=== PATIENT | female | born 1965 | race Caucasian/White ===

== ENCOUNTER 2019-08-01 22:05 | Emergency (ER) | payer SELFPAY ==
[2019-08-01 22:07] VITALS: BP 122/90; PULSE 99; RESP 18; TEMP 36.9; O2SAT 94; BMI 26.6
--- NOTE | 2019-08-01 22:29 | XRR_ITS ---
PROCEDURE INFORMATION: Exam: XR Chest, 1 View Exam date and time: 08/01/2019 10:43 PM Age: 53 years old Clinical indication: Chest pain; Type not specified TECHNIQUE: Imaging protocol: XR of the chest Views: 1 view. COMPARISON: CR Chest 2 views* [id number] 05/27/2019 11:57 AM FINDINGS: Lungs: Unremarkable. No consolidation. Mild diffuse fibrosis. Linear atelectasis versus scarring in the lung bases. Pleural space: Unremarkable. No pleural effusion. No pneumothorax. Heart/Mediastinum: Borderline cardiomegaly. Bones/joints: Unremarkable. XR/XR chest 1V portable [id number] IMPRESSION: No acute findings. Unchanged fibrosis.
--- NOTE | 2019-08-01 22:29 | ED_ITS ---
Entered by Jesenia Cox, acting as scribe for HPI - Chest Pain General: Chief Complaint: Chest Pain Stated Complaint: chest pain Time Seen by Provider: 08/01/19 22:29 Source: patient Mode of arrival: ambulatory Limitations: no limitations History of Present Illness: HPI narrative: 53 yo f came to the er pov with family for chest pain. Onset was yesterday. Pt states that when she was bending over and layind down makes it worse. Pt states that her left leg stays swollen. Pt states that when she tales a deep breath it causes her pain. MD complaint: chest pain Prior episodes: Yes Onset: during rest and during exertion Pain location: substernal Pain radiation: none Severity: moderate Quality: sharp Relieving factors: nothing Exacerbating factors: exertion and supine Associated symptoms: Deny abdominal pain, dyspnea or fever(s) Risk Factors: Coronary artery disease risk factors: none Related Data: On Oral Contraceptives: No Review of Systems General: Reports: 10 or more systems reviewed and unremarkable except in HPI and below Const: Denies: fever Eyes: Denies: change in vision ENMT: Denies: throat pain Card: Reports: chest pain Resp: Denies: shortness of breath GI: Denies: abdominal pain : Denies: flank pain or urinary incontinence Musc: Denies: neck pain Skin/Breast: Denies: rash Neuro: Denies: headache Psych: Denies: anxiety Endo: Denies: excessive urination Casey/Lymph: Denies: easy bruising All/Imm: Denies: hives PFSH ED PFSH: Statuses (acute, chronic, etc) shown below reflect problem list status as previously entered and may not be historically accurate Social History Smoking and tobacco status: current every day smoker Physical Exam Const: COMMON NORMALS: oriented x3 and alert EXAM LIMITATIONS: no altered mental status HENMT: COMMON NORMALS: not normocephalic HEAD & SCALP: not normocephalic Eye: COMMON NORMALS: PERRL PUPIL: Yes PERRL Neck/C-Spine: COMMON NORMALS: full ROM Chest: COMMONS NORMALS: inspection of chest normal CHEST: Yes localized rib tenderness with anteroposterior compression Resp: COMMON NORMALS: normal respiratory effort and clear to auscultation bilaterally EFFORT & INSPECTION: No tachypneic and No respiratory distress AUSCULTATION: clear to auscultation bilaterally GI: COMMON NORMALS: normal to inspection, nondistended, normoactive bowel sounds : COMMON NORMALS: Yes no CVA tenderness BLADDER/KIDNEY EXAM: Yes no CVA tenderness Back/Pelvis: COMMON NORMALS: no CVA tenderness Extremity: COMMON NORMALS: normal to inspection Neuro: COMMON NORMALS: oriented x3 SENSORIUM/ORIENTATION: Yes alert Psych: ATTITUDE: Yes calm Skin: COMMON NORMALS: no rashes or lesions noted GENERAL SKIN EXAM: no rashes or lesions noted Course ED course: 53-year-old female with reproducible, atypical, pleuritic type chest pain. She was mildly tachycardic. Her troponins did not change. Her EKGs showed wandering isoelectric line with slight J-point elevation in some leads. This did not appear ischemic. Her other laboratory was not significant. Because of the tachycardia, and pleuritic chest pain, CTA was ordered which did not show a pulmonary embolism. There was no pneumonia. There was however debris in the right main bronchus indicative of possible aspiration. She will be treated for aspiration pneumonitis, as well as the potential for costochondritis. Vital Signs: Vital signs: Vital Signs Temperature 98.5 F 08/01/19 22:07 Pulse Rate 89 08/02/19 03:13 Respiratory Rate 16 08/02/19 03:13 Blood Pressure 130/77 08/02/19 03:13 Pulse Oximetry 98 08/02/19 03:13 MDM - Chest Pain Lab Data: Labs: Lab Results 08/01/19 08/01/19 08/01/19 Range/Units 22:47 22:47 22:47 WBC 15.5 H (4.0-10.0) 10^3/ uL RBC 4.73 (4.1-5.3) 10^6/u L Hgb 15.1 (11.5-15.3) g/dL Hct 45.3 (37.0-47.0) % MCV 95.8 (81-99) fL MCH 31.9 (28.0-34.0) pg MCHC 33.3 (30.0-36.0) g/dL RDW 14.2 (12.1-15.1) % Plt Count 360 (130-400) 10^3/c mm MPV 9.9 (7.4-10.4) fL Neut % (Auto) 82.9 % Lymph % (Auto) 10.7 % [place] % (Auto) 5.1 % Eos % (Auto) 0.5 % Baso % (Auto) 0.5 % Neut # (Auto) 12.8 H (1.8-7.7) 10^3/u L Lymph # (Auto) 1.7 (0.8-4.8) 10^3/u L [place] # (Auto) 0.8 (0.2-0.9) 10^3/u L Eos # (Auto) 0.1 (0.0-0.8) 10^3/u L Baso # (Auto) 0.1 (0.0-0.1) 10^3/u L Nucleated RBC % (a uto) 0 % Nucleated RBCs # 0.0 /100WBC Sodium 137 (136-145) mmol/L Potassium 4.1 (3.5-5.1) mmol/L Chloride 100 (98-107) mmol/L Carbon Dioxide 25 (22-29) mmol/L Anion Gap 16.1 (5-19) BUN 7 (6-20) mg/dL Creatinine 0.6 (0.5-0.9) mg/dL GFR Calculation 105.4 (90-130) mL/min Glucose 169 H (74-109) mg/dL Calcium 9.7 (8.6-10.0) mg/Dl Total Bilirubin 0.2 (0.15-1.2) mg/dL AST 22 (0-32) U/L ALT 23 (0-33) U/L Alkaline Phosphata se 149 H (35-105) IU/L Troponin T Baselin e 6 (0-10) ng/mL Troponin T 120 Min [place] (0-10) ng/mL Delta Troponin T (0-10) ABS# NT-Pro-B Natriuret Pep 127 H (0-125) pg/mL Total Protein 7.9 (6.6-8.7) g/dL Albumin 4.3 (3.5-5.2) g/dL Globulin 3.6 (1.3-4.6) g/dL Urine Color (Yellow) Urine Appearance (CLEAR) Urine pH (5-7) Ur Specific Gravit y (1.005-1.030) Urine Protein (Negative) Urine Glucose (UA) (Normal) Urine Ketones (Negative) Urine Occult Blood (Negative) Urine Nitrate (Negative) Urine Bilirubin (NEGATIVE) Prot Sulfosalicyli c Acd Urine Urobilinogen (Negative) mg/dL Ur Leukocyte Clarita ase (Negative) 08/02/19 08/02/19 Range/Units 00:35 01:25 WBC (4.0-10.0) 10^3/ uL RBC (4.1-5.3) 10^6/u L Hgb (11.5-15.3) g/dL Hct (37.0-47.0) % MCV (81-99) fL MCH (28.0-34.0) pg MCHC (30.0-36.0) g/dL RDW (12.1-15.1) % Plt Count (130-400) 10^3/c mm MPV (7.4-10.4) fL Neut % (Auto) % Lymph % (Auto) % [place] % (Auto) % Eos % (Auto) % Baso % (Auto) % Neut # (Auto) (1.8-7.7) 10^3/u L Lymph # (Auto) (0.8-4.8) 10^3/u L [place] # (Auto) (0.2-0.9) 10^3/u L Eos # (Auto) (0.0-0.8) 10^3/u L Baso # (Auto) (0.0-0.1) 10^3/u L Nucleated RBC % (a uto) % Nucleated RBCs # /100WBC Sodium (136-145) mmol/L Potassium (3.5-5.1) mmol/L Chloride (98-107) mmol/L Carbon Dioxide (22-29) mmol/L Anion Gap (5-19) BUN (6-20) mg/dL Creatinine (0.5-0.9) mg/dL GFR Calculation (90-130) mL/min Glucose (74-109) mg/dL Calcium (8.6-10.0) mg/Dl Total Bilirubin (0.15-1.2) mg/dL AST (0-32) U/L ALT (0-33) U/L Alkaline Phosphata se (35-105) IU/L Troponin T Baselin e (0-10) ng/mL Troponin T 120 Min [place] 6.08 (0-10) ng/mL Delta Troponin T 0.08 (0-10) ABS# NT-Pro-B Natriuret Pep (0-125) pg/mL Total Protein (6.6-8.7) g/dL Albumin (3.5-5.2) g/dL Globulin (1.3-4.6) g/dL Urine Color Yellow (Yellow) Urine Appearance Clear (CLEAR) Urine pH 9 H (5-7) Ur Specific Gravit y 1.015 (1.005-1.030) Urine Protein Neg (Negative) Urine Glucose (UA) Norm (Normal) Urine Ketones Negative (Negative) Urine Occult Blood Neg (Negative) Urine Nitrate Negative (Negative) Urine Bilirubin Neg (NEGATIVE) Prot Sulfosalicyli c Acd Negative Urine Urobilinogen Norm (Negative) mg/dL Ur Leukocyte Clarita ase Negative (Negative) Discharge Plan Discharge Patient Disposition: Home, Self-Care Clinical Impression: Atypical chest pain, Costalchondritis Aspiration into respiratory tract Qualifiers: Encounter type: initial encounter Qualified Code(s): T17.908A - Unspecified foreign body in respiratory tract, part unspecified causing other injury, initial encounter Condition: Stable Prescriptions: New ketorolac 10 mg tablet 10 mg PO Q8H PRN (Reason: pain) Qty: 14 RF: 0 clindamycin HCl 300 mg capsule 300 mg PO Q8H 7 Days Qty: 21 RF: 0 No Action methotrexate sodium 2.5 mg Tablet See Rx Instructions .ROUTE .COMPLEX RF: 0 folic acid 1 mg Tablet 1 mg PO DAILY RF: 0 Discharge Orders: Discharge Order (Routine); Ordered 08/02/19 Ordered By: Roberto Moran Discharge Diet: Usual diet Discharge Activity: Increase activity as tolerated Patient Instructions: Chest Pain (ED), Costochondritis (ED) Activity Restrictions/Additional Instructions: Return for fever greater than 100, worsening pain despite treatment, worsening shortness of breath, other concerning symptoms Discharge Date/Time: 08/02/19 03:14 Coding Level of Care Code ED Parent Educator for g Bubba The documentation recorded by the Kenny bah Stephanie Lyn, accurately reflects the service I personally performed and the decisions made by me, Roberto Moran, DO Aug 01, 2019 22:05
--- NOTE | 2019-08-01 22:29 | ECG_ITS ---
Measurements Intervals [place] Rate: 88 P: 70 NE: 160 QRS: 29 QRSD: 96 T: 53 QT: 327 QTc: 398 SINUS RHYTHM POSSIBLE RIGHT VENTRICULAR CONDUCTION DELAY [RSR (QR) IN V1/V2] ST ELEVATION, CONSIDER ANTERIOR INJURY ST ELEVATION, CONSIDER INFERIOR INJURY Compared to ECG 03/03/2018 01:39:02 ST (T wave) deviation now present Myocardial infarct finding still present Electronically Signed On 08-03-2019 11:20:22 CELLOPHANE WORKER by Trista Nolasco M.D. [email or web address] f
[2019-08-01 22:55] LABS: Basophils # 0.1 10^3/uL (0.0-0.1); Basophils % 0.5 %; Eosinophils # 0.1 10^3/uL (0.0-0.8); Eosinophils % 0.5 %; Hematocrit 45.3 % (37.0-47.0); Hemoglobin 15.1 g/dL (11.5-15.3); Lymphocytes # 1.7 10^3/uL (0.8-4.8); Lymphocytes % 10.7 %; Mean Corpuscular HGB Conc 33.3 g/dL (30.0-36.0); Mean Corpuscular Hemoglobin 31.9 pg (28.0-34.0); Mean Corpuscular Volume 95.8 fL (81-99); Mean Platelet Volume 9.9 fL (7.4-10.4); Monocytes # 0.8 10^3/uL (0.2-0.9); Monocytes % 5.1 %; Neutrophils # 12.8 10^3/uL (1.8-7.7); Neutrophils % 82.9 %; Nucleated Red Blood Cells % 0 %; Platelet Count 360 10^3/cmm (130-400); Red Blood Count 4.73 10^6/uL (4.1-5.3); Red Cell Distribution Width 14.2 % (12.1-15.1); White Blood Count 15.5 10^3/uL (4.0-10.0)
[2019-08-01 23:00] VITALS: BP 118/72; PULSE 96; RESP 18; O2SAT 89
[2019-08-01 23:12] LABS: Troponin(5th) Baseline 6 ng/mL (0-10)
[2019-08-01 23:19] LABS: Alanine Aminotransferase 23 U/L (0-33); Albumin Level 4.3 g/dL (3.5-5.2); Alkaline Phosphatase 149 IU/L (35-105); Anion Gap 16.1 (5-19); Aspartate Amino Transferase 22 U/L (0-32); Blood Urea Nitrogen 7 mg/dL (6-20); Calcium 9.7 mg/Dl (8.6-10.0); Carbon Dioxide 25 mmol/L (22-29); Chloride 100 mmol/L (98-107); Globulin 3.6 g/dL (1.3-4.6); Glomerular Filtration Rate 105.4 mL/min (90-130); Glucose 169 mg/dL (74-109); NT Pro B Type Natriuretic Pept 127 pg/mL (0-125); Potassium 4.1 mmol/L (3.5-5.1); Sodium 137 mmol/L (136-145); Total Bilirubin 0.2 mg/dL (0.15-1.2); Total Protein 7.9 g/dL (6.6-8.7)
[2019-08-01] MEDS: sodium chloride 0.9% 500 ML 999 ML IV (23:41)
[2019-08-01 23:46] VITALS: BP 114/68; PULSE 87; RESP 16; O2SAT 93
[2019-08-02] VITALS: BP 124/74; PULSE 88; RESP 20; O2SAT 92
--- NOTE | 2019-08-02 00:29 | ECG_ITS ---
Measurements Intervals [place] Rate: 102 P: 68 [place]: 159 QRS: 33 QRSD: 92 T: 57 QT: 324 QTc: 423 SINUS TACHYCARDIA POSSIBLE RIGHT VENTRICULAR CONDUCTION DELAY [RSR (QR) IN V1/V2] ST ELEVATION, CONSIDER PERICARDITIS Compared to ECG 03/03/2018 01:39:02 ST (T wave) deviation now present Sinus rhythm no longer present Electronically Signed On 08-03-2019 13:33:08 MUSIC EDUCATION DIRECTOR by Trista Nolasco M.D. [id number] f
[2019-08-02 00:30] VITALS: BP 129/79; PULSE 92; O2SAT 92
--- NOTE | 2019-08-02 00:33 | CTR_ITS ---
PROCEDURE INFORMATION: Exam: CT Angiography Chest With Contrast Exam date and time: 08/02/2019 12:40 AM Age: 53 years old Clinical indication: Chest pain; Type not specified TECHNIQUE: Imaging protocol: Computed tomographic angiography of the chest with intravenous contrast. Sagittal and coronal reformatted images were created and reviewed. 3D rendering: MIP and/or 3D reconstructed images were created by the technologist. Total DLP: 821.53 mGy-cm Radiation optimization: All CT scans at this facility use at least one of these dose optimization techniques: automated exposure control; mA and/or kV adjustment per patient size (includes targeted exams where dose is matched to clinical indication); or iterative reconstruction. Contrast material: OMNI 350; Contrast volume: 95 ml; Contrast route: 2G; COMPARISON: CT chest wo con [id number] 05/14/2018 3:02 PM FINDINGS: Pulmonary arteries: No filling defects in the pulmonary arteries to suggest pulmonary embolism. Aorta: No evidence for aortic aneurysm or aortic dissection. Other arteries: There is incidental note of a separate origin of the right hepatic artery from the celiac artery. Lungs: Debris layering in the right mainstem bronchus. This may represent bronchial secretions or aspirated contents. No focal consolidation. No pulmonary edema. Noncalcified nodule in the right middle lobe with an average measurement of 4 mm (series 3, image 42). Findings are stable. Mild paraseptal emphysematous changes in the lung apices. Findings are stable. Dependent atelectasis in the lungs bilaterally. Pleural space: No pneumothorax. No pleural effusion. Heart: The heart is unremarkable. No cardiomegaly. No pericardial effusion. Mediastinum: The esophagus is unremarkable. No mediastinal hematoma. No pneumomediastinum. Liver: The liver is unremarkable. Gallbladder and bile ducts: The gallbladder is unremarkable. No biliary ductal dilatation. Pancreas: The pancreas is unremarkable. No pancreatic ductal dilatation. Spleen: The spleen is unremarkable. Adrenals: The right and left adrenal glands are unremarkable. Kidneys and ureters: The visualized right and left kidneys are unremarkable. Lymph nodes: No lymphadenopathy. Bones/joints: Mild degenerative changes in the visualized spine. Soft tissues: The extrathoracic soft tissues are unremarkable. CT/CT angio chest PE protcl [id number] IMPRESSION: 1. No evidence for pulmonary embolism. 2. Debris layering in the right mainstem bronchus. This may represent bronchial secretions or aspirated contents. 3. Noncalcified nodule in the right middle lobe. Findings are stable. 4. Dependent atelectasis in the lungs bilaterally. 5. Incidental/nonacute findings are listed in the report. Radiation Dose CTDIVOL = (mGy): DLP = 821.53 (mGy-cm)
[2019-08-02 01:14] LABS: Troponin 5 2HR 6.08 ng/mL (0-10)
[2019-08-02 01:18] LABS: Troponin 5 2HR Delta 0.08 ABS# (0-10)
[2019-08-02 01:30] VITALS: BP 132/78; PULSE 92; RESP 16; O2SAT 92
[2019-08-02 02:07] LABS: Add Urine Microscopic? NO
[2019-08-02 02:12] LABS: Urine Appearance Clear (CLEAR); Urine Color Yellow (Yellow); pH Urine 9 (5-7)
[2019-08-02 02:13] LABS: Bilirubin Urine Neg (NEGATIVE); Blood Urine Neg (Negative); Glucose Urine UA Norm (Normal); Ketones Urine Negative (Negative); Leukocyte Esterase Urine Negative (Negative); Nitrate Urine Negative (Negative); Protein Urine Neg (Negative); Specific Gravity, Urine 1.015 (1.005-1.030); Sulfosalicylic Acid Urine Negative; Urobilinogen Urine Norm (Negative)
[2019-08-02] MEDS: ketorolac 30 mg/mL INJ IVP (02:44)
[2019-08-02] MEDS: clindamycin 150 mg Capsule 300 MG PO (02:44)
[2019-08-02 03:13] VITALS: BP 130/77; PULSE 89; RESP 16; O2SAT 98
--- NOTE | 2019-08-02 04:29 | ECG_ITS ---
Measurements Intervals [place] Rate: 87 P: 53 [place]: 148 QRS: 19 QRSD: 98 T: 49 QT: 353 QTc: 426 SINUS RHYTHM POSSIBLE RIGHT VENTRICULAR CONDUCTION DELAY [RSR (QR) IN V1/V2] ST ELEVATION, CONSIDER ANTERIOR INJURY MARKED ST ELEVATION, CONSIDER INFERIOR INJURY Compared to ECG 03/03/2018 01:39:02 ST (T wave) deviation now present Myocardial infarct finding still present Electronically Signed On 08-03-2019 13:30:53 SOFTWARE PROJECT MANAGER by Trista Nolasco M.D. [email or web address]
== END 2019-08-02 03:14 | disposition home or self-care (01) ==
PROVIDERS: Physician Assistant; Emergency Provider Emergency Medicine
DX: R07.89 Other chest pain (principal); M94.0 Chondrocostal junction syndrome [Tietze]; F17.210 Nicotine dependence, cigarettes, uncomplicated
CPT/HCPCS: 71045; 71275; 80053; 81003; 83880; 84484; 85025; 93005; 96360; 96361; 96374; 99283; J1885; J7040; Q9967

== ENCOUNTER → 2019-08-26 13:21 | Outpatient (BNVA) | payer SELFPAY | DX: M05.79 Rheumatoid arthritis with rheumatoid factor of multiple sites without organ or systems involvement (principal); Z79.899 Other long term (current) drug therapy | CPT/HCPCS: 36415; 82565; 84460; 85651; 86140 ==

== ENCOUNTER → 2019-08-26 13:32 | Outpatient (BNVA) | payer SELFPAY | DX: M05.79 Rheumatoid arthritis with rheumatoid factor of multiple sites without organ or systems involvement (principal) | CPT/HCPCS: 85025 ==

== ENCOUNTER → 2019-09-15 16:08 | Outpatient (BNVA) | payer SELFPAY | PROVIDERS: Visit Provider Internal Medicine Rheumatology | DX: M05.79 Rheumatoid arthritis with rheumatoid factor of multiple sites without organ or systems involvement (principal); Z79.899 Other long term (current) drug therapy; R91.1 Solitary pulmonary nodule; Z79.52 Long term (current) use of systemic steroids; Z11.59 Encounter for screening for other viral diseases | CPT/HCPCS: 99214 ==

== ENCOUNTER → 2019-12-11 09:29 | Outpatient (BNVA) | payer SELFPAY | PROVIDERS: Visit Provider Internal Medicine Rheumatology | DX: M05.79 Rheumatoid arthritis with rheumatoid factor of multiple sites without organ or systems involvement (principal); Z79.899 Other long term (current) drug therapy; R91.1 Solitary pulmonary nodule; Z79.52 Long term (current) use of systemic steroids | CPT/HCPCS: 36415; 80076; 82565; 85025; 85651; 86140 ==

== ENCOUNTER → 2019-12-23 10:03 | Outpatient (BNVA) | payer SELFPAY | PROVIDERS: Visit Provider Internal Medicine Rheumatology | DX: M05.79 Rheumatoid arthritis with rheumatoid factor of multiple sites without organ or systems involvement (principal); Z79.52 Long term (current) use of systemic steroids; Z79.899 Other long term (current) drug therapy; R91.1 Solitary pulmonary nodule; F17.210 Nicotine dependence, cigarettes, uncomplicated | CPT/HCPCS: 99214 ==

== ENCOUNTER 2020-01-20 11:30 | Outpatient (CLI) | payer SELFPAY ==
--- NOTE | 2020-01-20 11:30 | FL_ITS ---
WS: [id number] MODIFIED BARIUM SWALLOW HISTORY: Other dysphagia FLUOROSCOPY TIME: 2 minutes. Modified barium swallow was performed by the speech pathologist. Fluoroscopy was provided with the pa tient in a lateral projection. Multiple food consistencies were provided. Patient swallowed all food products without difficulty. No aspiration or laryngeal penetration. Large osteophyte causing indentation on the posterior esophagus at the C5-6 level. Mild cricopharyngeal sp asm. Barium tablet was swallowed without difficulty. FL/FL barium swallow modifd [id number] IMPRESSION: 1. No aspiration. 2. Mild cricopharyngeal spasm and hypertrophic osteophyte encroaching upon the posterior cervical esophagus. Please see speech therapist report also for recommendations.
== END 2020-01-20 11:31 | disposition home or self-care (01) ==
LOC: RAD 11:34
PROVIDERS: Visit Provider Internal Medicine Critical Care Medicine
DX: J69.0 Pneumonitis due to inhalation of food and vomit (principal); M25.70 Osteophyte, unspecified joint
CPT/HCPCS: 74230; 92611

== ENCOUNTER → 2020-01-26 09:49 | Outpatient (BNVA) | payer SELFPAY | PROVIDERS: Visit Provider Internal Medicine Rheumatology | DX: Z79.899 Other long term (current) drug therapy (principal) | CPT/HCPCS: 36415; 80076; 82565; 85025; 85651; 86140 ==

== ENCOUNTER → 2020-03-24 10:04 | Outpatient (BNVA) | payer SELFPAY | PROVIDERS: Visit Provider Internal Medicine Rheumatology | DX: M05.79 Rheumatoid arthritis with rheumatoid factor of multiple sites without organ or systems involvement (principal); R91.1 Solitary pulmonary nodule; Z79.899 Other long term (current) drug therapy; Z79.52 Long term (current) use of systemic steroids; F17.210 Nicotine dependence, cigarettes, uncomplicated | CPT/HCPCS: 99214 ==

== ENCOUNTER → 2020-05-24 10:21 | Outpatient (BNVA) | payer MEDICARE, SELFPAY | PROVIDERS: Visit Provider Internal Medicine Rheumatology | DX: Z79.899 Other long term (current) drug therapy (principal) | CPT/HCPCS: 36415; 80076; 82565; 85025; 85651; 86140 ==

== ENCOUNTER → 2020-06-16 13:41 | Outpatient (BNVA) | payer MEDICARE, SELFPAY | PROVIDERS: PCP Family Medicine; Visit Provider Internal Medicine Rheumatology | DX: M05.79 Rheumatoid arthritis with rheumatoid factor of multiple sites without organ or systems involvement (principal); Z79.899 Other long term (current) drug therapy; M06.4 Inflammatory polyarthropathy; Z79.52 Long term (current) use of systemic steroids; R91.1 Solitary pulmonary nodule; F17.210 Nicotine dependence, cigarettes, uncomplicated | CPT/HCPCS: 99214 ==

== ENCOUNTER → 2020-11-22 10:24 | Outpatient (BNVA) | payer MEDICARE, SELFPAY | PROVIDERS: PCP Family Medicine; Visit Provider Internal Medicine Rheumatology | DX: M05.79 Rheumatoid arthritis with rheumatoid factor of multiple sites without organ or systems involvement (principal); Z79.899 Other long term (current) drug therapy | CPT/HCPCS: 36415; 80076; 82565 ==

== ENCOUNTER → 2020-11-29 14:59 | Outpatient (BNVA) | payer MEDICARE, SELFPAY | PROVIDERS: PCP Family Medicine; Visit Provider Internal Medicine Rheumatology | DX: M05.79 Rheumatoid arthritis with rheumatoid factor of multiple sites without organ or systems involvement (principal); Z79.899 Other long term (current) drug therapy; H66.92 Otitis media, unspecified, left ear; R91.1 Solitary pulmonary nodule; F17.210 Nicotine dependence, cigarettes, uncomplicated | CPT/HCPCS: 99214 ==

== ENCOUNTER → 2021-03-01 11:06 | Outpatient (BNVA) | payer MEDICARE, MEDICAID, SELFPAY | PROVIDERS: PCP Family Medicine; Visit Provider Internal Medicine Rheumatology | DX: M05.79 Rheumatoid arthritis with rheumatoid factor of multiple sites without organ or systems involvement (principal); Z79.899 Other long term (current) drug therapy; M19.90 Unspecified osteoarthritis, unspecified site | CPT/HCPCS: 36415; 80076; 82565; 85025; 86140 ==

== ENCOUNTER → 2021-03-14 13:13 | Outpatient (BNVA) | payer MEDICARE, SELFPAY | PROVIDERS: PCP Family Medicine; Visit Provider Internal Medicine Rheumatology | DX: M05.79 Rheumatoid arthritis with rheumatoid factor of multiple sites without organ or systems involvement (principal); Z79.899 Other long term (current) drug therapy; R91.1 Solitary pulmonary nodule; Z71.89 Other specified counseling; F17.210 Nicotine dependence, cigarettes, uncomplicated | CPT/HCPCS: 99214 ==

== ENCOUNTER → 2021-06-21 13:16 | Outpatient (BNVA) | payer MEDICARE, MEDICAID, SELFPAY | PROVIDERS: PCP Family Medicine; Visit Provider Internal Medicine Rheumatology | DX: M05.79 Rheumatoid arthritis with rheumatoid factor of multiple sites without organ or systems involvement (principal); Z79.899 Other long term (current) drug therapy | CPT/HCPCS: 36415; 80076; 82565; 85025; 86140 ==

== ENCOUNTER → 2022-05-15 13:13 | Outpatient (BNVA) | payer MEDICARE, MEDICAID, SELFPAY | PROVIDERS: PCP Family Medicine; Visit Provider Internal Medicine Rheumatology | DX: M05.79 Rheumatoid arthritis with rheumatoid factor of multiple sites without organ or systems involvement (principal); Z79.899 Other long term (current) drug therapy; Z71.89 Other specified counseling; R91.1 Solitary pulmonary nodule | CPT/HCPCS: 72020; 80076; 82565; 85025; 86140; 99214 ==

== ENCOUNTER → 2022-09-12 12:59 | Outpatient (BNVA) | payer MEDICARE, MEDICAID, SELFPAY | PROVIDERS: PCP Family Medicine; Visit Provider Internal Medicine Rheumatology | DX: M05.79 Rheumatoid arthritis with rheumatoid factor of multiple sites without organ or systems involvement (principal); Z79.899 Other long term (current) drug therapy; Z71.89 Other specified counseling | CPT/HCPCS: 99214 ==

== ENCOUNTER → 2024-04-02 14:44 | Outpatient (BNVA) | payer MEDICARE, MEDICAID, SELFPAY | PROVIDERS: PCP Family Medicine; Visit Provider Internal Medicine Rheumatology | DX: M05.79 Rheumatoid arthritis with rheumatoid factor of multiple sites without organ or systems involvement (principal); Z79.899 Other long term (current) drug therapy; Z71.89 Other specified counseling | CPT/HCPCS: 99214 ==

== ENCOUNTER 2024-04-24 10:19 | Outpatient (CLI) | payer MEDICARE, MEDICAID, SELFPAY ==
--- NOTE | 2024-04-24 10:20 | MM_ITS ---
WS: [id number] SCREENING DIGITAL BREAST TOMOSYNTHESIS MAMMOGRAM WITH CAD HISTORY: SCREENING COMPARISON: None available. Bilateral CC and MLO with tomosynthesis and synthetic mammography submitted. Computer aided detection analyzed. Breast composition: There are scattered areas of fibroglandular density. Round mass of increased dens ity and circumscribed margins in the medial posterior RIGHT breast estimated near 3:00. No additional masses or suspicious grouping of calcifications. No distortion. MM/MM scr tomosynthesis [id number] IMPRESSION: BI-RADS: 0 - Incomplete: Need additional imaging evaluation. FOLLOW UP: Need Additional Imaging RIGHT breast ultrasound, limited: 3:00 RIGHT breast.
== END 2024-04-24 10:20 | disposition home or self-care (01) ==
LOC: MOBLMAM 10:24
PROVIDERS: PCP Nurse Practitioner Family; Visit Provider Nurse Practitioner Family
DX: Z12.31 Encounter for screening mammogram for malignant neoplasm of breast (principal); R92.323 Mammographic fibroglandular density, bilateral breasts; N63.12 Unspecified lump in the right breast, upper inner quadrant
CPT/HCPCS: 77063; 77067

== ENCOUNTER 2024-07-07 11:06 | Outpatient (CLI) | payer MEDICARE, MEDICAID, SELFPAY ==
--- NOTE | 2024-07-07 11:11 | US_ITS ---
WS: [id number] ULTRASOUND RIGHT BREAST HISTORY: ABNORMAL MAMMOGRAM COMPARISON: 04/24/2024 mammogram TECHNIQUE: 2-D and Doppler. There is a small cyst adjacent to the chest wall at 3:00, 3 cm from nipple measuring 0.3 x 0.4 x 0.2 cm. This may correspond to the abnormality seen on the mammogram. Ultrasound mass is slightly smaller than expected. This is a well-circumscribed cyst. No additional abnormality identified. US/US breast RT limited* [id number] IMPRESSION: BI-RADS: 3- Probably Benign FOLLOW-UP: 6 Month Follow-up Recommend 6-month mammographic and ultrasound follow-up of the cystic mass in t he RIGHT breast. This mass is slightly smaller on ultrasound than expected. Wit h no prior mammograms for comparison recommend 6-month diagnostic follow-up.
== END 2024-07-07 11:07 | disposition home or self-care (01) ==
LOC: RAD 11:08
PROVIDERS: PCP Nurse Practitioner Family; Visit Provider Nurse Practitioner Family
DX: N60.01 Solitary cyst of right breast (principal)
CPT/HCPCS: 76642

== ENCOUNTER → 2024-08-13 13:42 | Outpatient (BNVA) | payer MEDICARE, MEDICAID, SELFPAY | PROVIDERS: PCP Nurse Practitioner Family; Visit Provider Internal Medicine Rheumatology | DX: Z79.899 Other long term (current) drug therapy (principal); M05.79 Rheumatoid arthritis with rheumatoid factor of multiple sites without organ or systems involvement; Z71.89 Other specified counseling | CPT/HCPCS: 36415; 80076; 82565; 85025; 85651; 86140; 99214 ==

== ENCOUNTER 2025-05-06 08:26 | Outpatient (CLI) | payer MEDICARE, MEDICAID, SELFPAY ==
[2025-05-06 09:18] LABS: Hematocrit 47.9 % (36-47); Hemoglobin 15.80 g/dL (11.27-16.99); Mean Corpuscular HGB Conc 33.0 g/dL (30-55); Mean Corpuscular Hemoglobin 30.5 pg (27-33); Mean Corpuscular Volume 92.5 fl (85-98); Nucleated Red Blood Cells % 0 %; Platelet Count 337 10^3/cmm (157-399); Red Blood Count 5.18 10^6/uL (3.85-5.65); White Blood Count 10.80 10^3/uL (3.29-11.43)
[2025-05-06 09:48] LABS: Alanine Aminotransferase 20 U/L (0-33); Albumin Level 4.0 g/dL (3.5-5.2); Alkaline Phosphatase 141 U/L (35-105); Aspartate Amino Transferase 19 U/L (0-32); Globulin 3.7 g/dL (1.3-4.6); Total Protein 7.7 g/dL (6.6-8.7)
[2025-05-06 10:05] LABS: Hepatitis B Surface Antigen Non-Reactive (Nonreactive)
== END 2025-05-06 08:27 | disposition home or self-care (01) ==
LOC: LAB 08:29
PROVIDERS: PCP Nurse Practitioner Family; Visit Provider Internal Medicine Rheumatology
DX: Z79.899 Other long term (current) drug therapy (principal); M05.79 Rheumatoid arthritis with rheumatoid factor of multiple sites without organ or systems involvement
CPT/HCPCS: 36415; 80076; 82565; 85025; 85651; 86140; 86480; 86704; 86803; 87340

== ENCOUNTER → 2025-06-10 14:25 | Outpatient (BNVA) | payer MEDICARE, MEDICAID, SELFPAY | PROVIDERS: PCP Nurse Practitioner Family; Visit Provider Internal Medicine Rheumatology | DX: M05.79 Rheumatoid arthritis with rheumatoid factor of multiple sites without organ or systems involvement (principal); Z79.899 Other long term (current) drug therapy; Z71.85 Encounter for immunization safety counseling; R91.8 Other nonspecific abnormal finding of lung field | CPT/HCPCS: 99214 ==